=== PATIENT | female | born 1975 | race Caucasian/White ===

== ENCOUNTER 2021-08-06 06:58 | Emergency (ER) | payer SELFPAY ==
[2021-08-06 07:49] LABS: BASOPHILS # (AUTO) 0.1 10^3/uL (0.0-0.1); BASOPHILS % (AUTO) 1.2 %; EOSINOPHILS # (AUTO) 0.2 10^3/uL (0.0-0.7); EOSINOPHILS % (AUTO) 2.6 %; HCT - HEMATOCRIT 43.8 % (37.0-47.0); HGB - HEMOGLOBIN 14.4 g/dL (12.0-16.0); LYMPHOCYTES % (AUTO) 43.3 %; MEAN CORPUSCULAR HEMOGLOBIN 28.3 pg (27.0-31.0); MEAN CORPUSCULAR HGB CONC 32.9 g/dL (32.0-36.0); MEAN CORPUSCULAR VOLUME 86.2 fL (81.0-99.0); MEAN PLATELET VOLUME 8.7 fL (7.9-10.8); MONOCYTES # (AUTO) 0.5 10^3/uL (0.0-1.0); MONOCYTES % (AUTO) 7.6 %; NEUTROPHILS # (AUTO) 3.1 10^3/uL (1.5-6.6); PLT - PLATELET COUNT 348 10^3/uL (130-450); RED BLOOD COUNT 5.08 10^6/uL (4.20-5.40); RED CELL DISTRIBUTION WIDTH 12.7 % (12.0-15.0); WHITE BLOOD COUNT 6.8 x10^3/uL (4.8-10.8)
[2021-08-06] MEDS ORDERED: ONDANSETRON 4 MG/2 ML VIAL IVP STA (07:59)
[2021-08-06] MEDS ORDERED: HYDROmorphone 1 MG/ML CARPUJECT IVP STA (07:59)
[2021-08-06] MEDS ORDERED: SODIUM CHLORIDE 0.9% 1,000 ML IV STA (07:59)
[2021-08-06 08:03] LABS: ALBUMIN 4.1 g/dL (3.2-5.5); ALBUMIN/GLOBULIN RATIO 1.2 (1.0-2.2); BILIRUBIN,TOTAL 0.4 mg/dL (0.2-1.0); CREATININE 0.9 mg/dL (0.4-1.0); POTASSIUM 4.3 mmol/L (3.5-5.0); TOTAL PROTEIN 7.5 g/dL (6.7-8.2)
[2021-08-06] MEDS ORDERED: iohexoL-300 100 ML VIAL ONE (08:21)
--- NOTE | 2021-08-06 09:35 | CT Report ---
PROCEDURE: Abdomen/Pelvis W INDICATIONS: bilateral suprapubic pain vomiting CONTRAST: IV CONTRAST: Isovue 300 ml: 100 PO CONTRAST: *NO PO CONTRAST TECHNIQUE: After the administration of intravenous contrast, 5 mm thick sections acquired from the diaphragms to the symphysis. 5 mm thick coronal and sagittal reformats were acquired. For radiation dose reducti on, the following was used: automated exposure control, adjustment of mA and/or kV according to rona ent size. COMPARISON: CT KUB 01/19/2017. FINDINGS: Image quality: Excellent. ABDOMEN: Lung bases: Lung bases are clear. Heart size is normal. Small hiatal hernia. Solid organs: Liver and spleen are normal in size and enhancement. Gallbladder is surgically absent . Biliary system is non dilated. Pancreas enhances normally. No adrenal nodules. Kidneys demonstr ate normal size and enhancement, without hydronephrosis. Peritoneum and bowel: Bowel loops demonstrate normal wall thickness and caliber. The appendix is ab sent. No free fluid or air. Nodes and vessels: No retroperitoneal or mesenteric adenopathy by size criteria. Aorta and inferior vena cava are normal in size. Miscellaneous: Tiny fat-containing umbilical hernia. PELVIS: Genitourinary: Bladder wall thickness is normal. Uterus is absent. No free fluid. Miscellaneous: No inguinal hernias or adenopathy. Bones: No suspicious bony lesions. No vertebral body compression fractures. IMPRESSION: 1. Source of abdominal pain is not identified. No free fluid. 2. Small hiatal hernia. 3. Post hysterectomy and appendectomy. Reviewed by: Dwayne Vicente MD on 08/06/2021 9:33 AM [facility] Approved by: Dwayne Vicente MD on 08/06/2021 9:33 AM PST Station ID: [id number]
[2021-08-06] MEDS ORDERED: iohexoL-300 100 ML VIAL IVP ONE (09:43)
--- NOTE | 2021-08-06 09:47 | ED Physician Documentation ---
PD HPI ABD PAIN - Stated complaint Stated Complaint: ABD PX/VOMITING - Chief complaint Chief Complaint: Abd Pain - History obtained from History obtained from: Patient - History of Present Illness Timing - onset: How many weeks ago (1) Timing - duration: Weeks (1) Timing - details: Gradual onset, Still present, Waxing and waning Quality: Sharp, Pain Location: RLQ Radiation: Lower back Improved by: Laying still, Vomiting Worsened by: Moving, Position, Palpation Associated symptoms: Nausea, Vomiting, Diarrhea, Constipation Similar symptoms before: No diagnosis Recently seen: Not recently seen - Additional information Additional information: Previously well 46-year-old female has developed right lower quadrant abdominal pain over the past week she has had vomiting and diarrhea. No fever. She is crying in pain. She indicates the pain comes and goes and is in the lower abdomen bilaterally . Review of Systems Constitutional: denies: Fever, Chills Ears: denies: Ear pain Nose: denies: Congestion Throat: denies: Sore throat Respiratory: denies: Dyspnea, Cough GI: reports: Abdominal Pain, Nausea, Diarrhea : denies: Dysuria, Frequency PD PAST MEDICAL HISTORY - Past Medical History Past Medical History: Yes Cardiovascular: None Respiratory: None Endocrine/Autoimmune: None GI: Chronic constipation, GERD, Other MANAGED CARE COORDINATOR: Endometriosis, Ovarian cysts : Kidney stones, Chronic bladder infection, Other HEENT: None Psych: Anxiety Musculoskeletal: None Derm: None, Other - Past Surgical History Past Surgical History: Yes General: Cholecystectomy, Appendectomy, Colonoscopy /MANAGED CARE COORDINATOR: section - Present Medications Home Medications: Ambulatory Orders Medication Instructions Recorded Confirmed Oxycodone HCl/Acetaminophen 1 each PO Q6HR PRN #15 tablet 02/15/14 03/04/14 [Percocet 5-325 mg Tablet] traMADol [Ultram] 03/04/14 03/04/14 Gabapentin 300 mg PO DAILY 10/26/15 12/18/15 Naproxen 375 mg PO BID #20 tablet 01/19/17 Oxycodone HCl/Acetaminophen 1 each PO Q6H PRN #20 tablet 01/19/17 [Percocet 5-325 mg Tablet] methocarbamoL [Robaxin] 500 mg PO Q6H PRN #25 tablet 01/19/17 Dicyclomine [Bentyl] 10 mg PO QID PRN #20 cap 08/06/21 Ondansetron Odt [Zofran] 4 mg TL Q6H PRN #10 tablet 08/06/21 - Allergies Allergies/Adverse Reactions: Allergies Allergy/AdvReac Type Severity Reaction Status Date / Time hydrocodone Allergy Unknown Verified 08/06/21 07:13 hydrocodone bitartrate * Allergy Unknown Verified 08/06/21 07:13 [From Vicodin] latex Allergy Unknown Verified 08/06/21 07:13 Penicillins Allergy Nausea Verified 08/06/21 07:13 cocoa AdvReac Anxiety Verified 08/06/21 07:13 coconut oil AdvReac Anaphylaxis Verified 08/06/21 07:13 hydromorphone HCl * AdvReac Anxiety Verified 08/06/21 07:13 [From Dilaudid] - Social History Does the pt smoke?: No Smoking Status: Never smoker Does the pt drink ETOH?: No Does the pt have substance abuse?: No - POLST Patient has POLST: No PD ED PE NORMAL - Vitals Vital signs reviewed: Yes (hypertensive ) - General General: Alert and oriented X 3, Well developed/nourished, Other (whinning in pain ) - HEENT HEENT: Atraumatic, PERRL, EOMI - Neck Neck: Supple, no meningeal sign, No bony TTP - Cardiac Cardiac: RRR, No murmur - Respiratory Respiratory: No respiratory distress, Clear bilaterally - Abdomen Abdomen: Normal bowel sounds, Soft, Non distended, No organomegaly, Other (mild general tenderness without reproducibility ) - Back Back: No CVA TTP, No spinal TTP - Derm Derm: Normal color, Warm and dry, No rash - Extremities Extremities: No deformity, No edema - Neuro Neuro: Alert and oriented X 3, terminal gauger supervisor 2-12 intact, No motor deficit, No sensory deficit, Normal speech Eye Opening: Spontaneous Motor: Obeys Commands Verbal: Oriented GCS Score: 15 - Psych Psych: Normal mood, Normal affect Results - Vitals Vitals: Vital Signs - 24 hr 08/06/21 08/06/21 07:09 10:50 Temperature 37 C Heart Rate 88 87 Respiratory 15 20 Rate Blood Pressure 136/74 H 113/68 O2 Saturation 99 100 Oxygen O2 Source Room air - Labs Labs: Laboratory Tests 08/06/21 08/06/21 08/06/21 07:30 07:44 07:44 WBC 6.8 RBC 5.08 Hgb 14.4 Hct 43.8 MCV 86.2 MCH 28.3 MCHC 32.9 RDW 12.7 Plt Count 348 MPV 8.7 Neut # (Auto) 3.1 Lymph # (Auto) 3.0 [place] # (Auto) 0.5 Eos # (Auto) 0.2 Baso # (Auto) 0.1 Absolute Nucleated RBC 0.00 Nucleated RBC % 0.0 Sodium 134 L Potassium 4.3 Chloride 100 L Carbon Dioxide 23 Anion Gap 11.0 BUN 21 H Creatinine 0.9 Estimated GFR (MDRD) 68 L Glucose 117 H Calcium 9.0 Total Bilirubin 0.4 AST 27 ALT 39 Alkaline Phosphatase 97 Total Protein 7.5 Albumin 4.1 Globulin 3.4 Albumin/Globulin Ratio 1.2 Lipase 24 Urine Color Urine Clarity Urine pH Ur Specific [place] Urine Protein Urine Glucose (UA) Urine Ketones Urine Occult Blood Urine Nitrite Urine Bilirubin Urine Urobilinogen Ur Leukocyte Esterase Urine RBC Urine WBC Ur Squamous Epith Cells Urine Bacteria Ur Microscopic Review Urine Culture Comments Urine HCG, Qual NEGATIVE 08/06/21 09:30 WBC RBC Hgb Hct MCV MCH MCHC RDW Plt Count MPV Neut # (Auto) Lymph # (Auto) [place] # (Auto) Eos # (Auto) Baso # (Auto) Absolute Nucleated RBC Nucleated RBC % Sodium Potassium Chloride Carbon Dioxide Anion Gap BUN Creatinine Estimated GFR (MDRD) Glucose Calcium Total Bilirubin AST ALT Alkaline Phosphatase Total Protein Albumin Globulin Albumin/Globulin Ratio Lipase Urine Color YELLOW Urine Clarity SL. CLOUDY Urine pH 5.5 Ur Specific [place] 1.025 Urine Protein NEGATIVE Urine Glucose (UA) NEGATIVE Urine Ketones NEGATIVE Urine Occult Blood NEGATIVE Urine Nitrite NEGATIVE Urine Bilirubin NEGATIVE Urine Urobilinogen 0.2 (NORMAL) Ur Leukocyte Esterase NEGATIVE Urine RBC 0-5 Urine WBC 0-3 Ur Squamous Epith Cells MOD Squamous H Urine Bacteria Moderate H Ur Microscopic Review INDICATED Urine Culture Comments NOT INDICATED Urine HCG, Qual - Rads (name of study) CT abpel Radiology: Prelim report reviewed (Impression: 1. Source of abdominal pain is not identified. No free fluid. Small hiatal hernia. Post hysterectomy and appendectomy. ), EMP read indepedently, See rad report PD MEDICAL DECISION MAKING - ED course Complexity details: reviewed results, re-evaluated patient, considered differential, d/w patient ED course: 46-year-old female with a week of abdominal cramping and diarrhea with some nausea has had her gallbladder out her appendix out in her uterus out. Today with the pain the patient was having I did do a CT scan of the abdomen pelvis which was very unremarkable. The patient's symptoms are undulating and cramping in nature and I suspect she has irritable bowel. She has been evaluated in the emergency department for similar episodes previously without findings. I have shared this with the patient we will start her on some Bentyl. She is treated here in the emergency department with saline, dilaudid and zofran with some improvement. Departure - Departure Disposition: Home, Self Care Clinical Impression: Irritable bowel syndrome Qualifiers: Irritable bowel syndrome type: with both diarrhea and constipation Qualified Code(s): K58.2 - Mixed irritable bowel syndrome Condition: Stable Instructions: ED IBS Follow-Up: Barrera Grant MD [Provider Admit Priv/Credential] - Prescriptions: Dicyclomine [Bentyl] 10 mg PO QID PRN #20 cap PRN Reason: Abdominal Pain Ondansetron Odt [Zofran] 4 mg TL Q6H PRN #10 tablet PRN Reason: Nausea / Vomiting Comments: Jacqueline, today we had no abnormalities to the testing we did including a CAT scan of her abdomen and pelvis. Your symptoms have recurred and this likely means that you have irritable bowel syndrome. There are likely foods that are irritating your intestine and sometimes overeating will cause this as well. I have prescribed some medication for intestinal spasm and this has been E scribed to Nicole in [place]. In addition I have prescribed some Zofran. Discharge Date/Time: 08/06/21 11:07
[2021-08-06 09:56] LABS: BILIRUBIN,URINE NEGATIVE (NEGATIVE); GLUCOSE, URINE (UA) NEGATIVE (NEGATIVE); KETONES,URINE (UA) NEGATIVE (NEGATIVE); LEUKOCYTE ESTERASE, URINE NEGATIVE (NEGATIVE); NITRITE,URINE NEGATIVE (NEGATIVE); OCCULT BLOOD,URINE NEGATIVE (NEGATIVE); PH,URINE 5.5 PH (5.0-7.5); PROTEIN,URINE NEGATIVE (NEGATIVE); UROBILINOGEN,URINE 0.2 (NORMAL) E.U./dL (NORMAL)
[2021-08-06 10:00] LABS: CLARITY,URINE SL. CLOUDY (CLEAR)
[2021-08-06 10:01] LABS: HCG UR QUAL NEGATIVE
[2021-08-06 10:05] LABS: BACTERIA,URINE Moderate /HPF (None Seen); RBC,URINE 0-5 /HPF (0-5); SQUAMOUS EPITHELIAL CELL,UR MOD Squamous (<= Few); WBC,URINE 0-3 /HPF (0-5)
[2021-08-06 10:51] VITALS: BP 113/68
== END 2021-08-06 11:07 | disposition home or self-care (01) ==
LOC: ED 06:58
DX: K58.2 Mixed irritable bowel syndrome (principal)
CPT/HCPCS: 36415; 74177; 80053; 81001; 81025; 83690; 85025; 96361; 96374; 96375; 99284; J1170; Q9967; 81003; 87086